=== PATIENT | female | born 1990 | race Caucasian/White ===

== ENCOUNTER 2022-12-20 20:18 | Outpatient (REF) | payer BC, SELFPAY ==
[2022-12-26 14:11] LABS: Age Gdln ACOG Testing Note (.); HPV Aptima Negative (Negative); IGP, Aptima HPV, rfx 16/18,45 Note (.)
== END 2022-12-20 20:19 | disposition home or self-care (01) ==
LOC: LAB 20:18
PROVIDERS: Visit Provider Physician Assistant
DX: Z01.419 Encounter for gynecological examination (general) (routine) without abnormal findings (principal)
CPT/HCPCS: 87624; G0145

== ENCOUNTER 2025-03-24 20:11 | Outpatient (REF) | payer BC, SELFPAY ==
--- OUTSIDE RECORDS SUMMARY | 2025-03-24 16:00 | XMS_ITS | Encounter Summary ---
Author Organization [facility] Address [address] [place] [address] Care Team Providers Care Metal Casket Maker Name Role Phone Paras Mcgowan MD Primary Care Provider + [phone] Reason for Visit * ReasonCommentsGynecologic Exam Encounter Details DateTypeDepartmentCare Team (Latest Contact Info)Ytvhbnquvet35/29/2025 4:00 PM EDTProcedure Visit [facility] [address] [place] [address] Isabelle Brown PA [address] [facility] [address] [place], [place] [id number] Well woman exam with routine gynecological exam; Amenorrhea Social History Tobacco UseTypesPacks/DayYears UsedDateSmoking Tobacco: NeverSmokeless Tobacco: Never Tobacco Cessation:Counseling Given: Not Answered Alcohol UseStandard Drinks/WeekCommentsNot Currently0 (1 standard drink = 0.6 oz pure alcohol)1-2 drinks 2-4x a month in the past year, Caffeine intake: 1-2 cups per day coffee, teaCommentsUnknownSex and Gender InformationValueDate RecordedSex Assigned at YhvkwVknkqy04/20/2023 11:17 AM EDTLegal SexFemale 08/08/2022 7:07 PM EDTGender BbiadqzbOyekks81/20/2023 11:17 AM EDTSexual ZaeghhauicpGmojgqpn43/20/2023 11:17 AM EDTdocumented as of this encounter Last Filed Vital Signs Vital SignReadingTime TakenCommentsBlood Zqrafold836/801 4:02 PM EDT Pulse--Temperature--Respiratory Rate--Oxygen Saturation--Inhaled Oxygen Concentration--Omkemn525 kg (321 lb)03/24/2025 4:02 PM EDTHeight--Body Mass Index48.8112/20/2022 11:43 AM EDTdocumented in this encounter Plan of Treatment DateTypeDepartmentCare Team (Latest Contact Info)Fnvitxkrpck37/05/2026 3:00 PM ESTProcedure Visit [facility] [address] [address] Isabelle Brown PA [address] [place] [address] NameTypePriorityAssociated DiagnosesOrder SchedulePap SmearPathology and CytologyRoutine Well woman exam with routine gynecological exam Ordered: 03/24/2025HPV DNA probe, amplifiedMicrobiologyRoutine Well woman exam with routine gynecological exam Ordered: 03/24/2025POCT , urine manually resultedPoint of Care Testing Routine Amenorrhea Ordered: 03/24/2025documented as of this encounter Visit Diagnoses Diagnosis Well woman exam with routine gynecological exam Routine gynecological examination Amenorrhea Absence of menstruation documented in this encounter Care Teams Team MemberRelationshipSpecialtyStart DateEnd Date Paras Mcgowan MD [address] [place] [address] PCP - GeneralFamily Medicine12/20/22documented as of this encounter
--- OUTSIDE RECORDS SUMMARY | 2025-03-24 20:16 | XMS_ITS | Encounter Summary ---
Author Organization [facility] Address [address] [place] [address] Care Team Providers Care Handbook Writer Name Role Phone Paras Mcgowan MD Primary Care Provider [phone] Encounter Details DateTypeDepartmentCare Team (Latest Contact Info)Zepzcingxxr37/29/2025Bamboo flowsheet [facility] [address] [place] [address] Isabelle Brown PA [address] [facility] [address] [place], [facility] Social History Tobacco UseTypesPacks/DayYears UsedDateSmoking Tobacco: NeverSmokeless Tobacco: NeverAlcohol UseStandard Drinks/WeekCommentsNot Currently0 (1 standard drink = 0.6 oz pure alcohol)1-2 drinks 2-4x a month in the past year, Caffeine intake: 1-2 cups per day coffee, teaCommentsUnknownSex and Gender Information ValueDate RecordedSex Assigned at HjieaQouqng88/20/2023 11:17 AM EDTLegal Sex Hxsqyl5208/08/2022 7:07 PM EDTGender SqajbcstXvfamr51/20/2023 11:17 AM EDTSexual QfzqmdbgfqwDxtdxyth23/20/2023 11:17 AM EDTdocumented as of this encounter Plan of Treatment DateTypeDepartmentCare Team (Latest Contact Info)Gyshjnlhctz78/09/2025 3:00 PM ESTProcedure Visit [facility] [address] [address] Isabelle Brown PA [address] [address] [place] [address] documented as of this encounter Visit Diagnoses Not on filedocumented in this encounter Care Teams Team MemberRelationshipSpecialtyStart DateEnd Date Paras Mcgowan MD [address] [place] [address] PCP - GeneralFamily Medicine12/20/22documented as of this encounter
--- OUTSIDE RECORDS SUMMARY | 2025-03-24 20:16 | XMS_ITS | Encounter Summary ---
Author Organization [facility] Address [address] [place] [address] Care Team Providers Care Sap Hana Developer Name Role Phone Paras Mcgowan MD Primary Care Provider + [phone] Encounter Details DateTypeDepartmentCare Team (Latest Contact Info)Zwbbbydvwjh18/22/2025Travel Social History Tobacco UseTypesPacks/DayYears UsedDateSmoking Tobacco: NeverAlcohol UseStandard Drinks/WeekCommentsYes0 (1 standard drink = 0.6 oz pure alcohol)1-2 drinks 2-4x a month in the past year, Caffeine intake: 1-2 cups per day coffee, tea CommentsUnknownSex and Gender InformationValueDate RecordedSex Assigned at Vsmhdt2912/13/2022 11:17 AM EDTLegal UbiRghsts29/15/2023 7:07 PM EDTGender UgnjepapTqeihu17/20/2023 11:17 AM EDTSexual VydbzattvjbTgtolucy17/20/2023 11:17 AM EDTdocumented as of this encounter Plan of Treatment DateTypeDepartmentCare Team (Latest Contact Info)Eknxzbkmoij96/05/2026 3:00 PM ESTProcedure Visit [facility] [address] [place] [address] Isabelle Brown PA [address] [place] [address] documented as of this encounter Visit Diagnoses Not on filedocumented in this encounter Care Teams Team MemberRelationshipSpecialtyStart DateEnd Date Paras Mcgowan MD [address] [place] [address] PCP - GeneralFamily Medicine12/20/22documented as of this encounter
--- OUTSIDE RECORDS SUMMARY | 2025-03-24 20:16 | XMS_ITS | Clinical Summary ---
Author Organization [facility] Address [address] [place] [address] Care Team Providers Care Needle Loom Setter Name Role Phone Paras Mcgowan MD Primary Care Provider [phone] Allergies No known active allergies Medications MedicationSigDispense QuantityRefillsLast FilledStart DateEnd DateStatus citalopram (CeleXA) 20 MG tablet Active pantoprazole (ProtoNix) 20 MG EC tablet Indications:Gastroesophageal reflux disease, unspecified whether esophagitis presentTAKE 1 TABLET BY MOUTH ONCE DAILY IN THE MORNING BEFORE MEAL(S) DO NOT CRUSH, CHEW, OR SPLIT. 30 tablet 5Active norethindrone (Micronor) 0.35 MG tablet Indications: control counselingTake 1 tablet (0.35 mg) by mouth in the morning. 28 tablet 5Active Encounters DateTypeDepartmentCare CmcvRcyfhtsuyjw45/29/2025 4:00 PM EDTProcedure Visit [facility] [address] [place] [address] Isabelle Brown PA Well woman exam with routine gynecological exam; Hskxfvbicm73/29/2025amboo flowsheet [facility] [address] [place] [address] Isabelle Brown PA 03/17/20256022Nkajyk57/15/2025Refill [facility] [address] [place] [address] Isaiah Cohn, DO control vjnephhwmm40/06/2025Refill [facility] [address] [place] [address] [place] [address] Isaiah Cohn, DO control counselingfrom Last 3 Months Family History Medical HistoryRelationNameCommentsHyperlipidemiaBrotherScott AxeHeart disease FatherJames AxeHypertensionFatherJames AxeDiabetesFather's SisterDonna Narcisa Heart diseaseMaternal GrandfatherVincent ScottStrokeMaternal GrandmotherMary ScottArthritisMotherMargaret Unruly- AxeCancerPaternal GrandfatherAlbert AxeHeart diseasePaternal GrandfatherAlbert AxeHypertensionPaternal GrandfatherAlbert Axe CancerPaternal GrandmotherViola AxeDiabetesPaternal GrandmotherViola AxeUterine cancerPaternal GrandmotherViola AxeRelationNameStatusCommentsBrotherScott Axe1 FatherJames AxeAliveFather's SisterDonna BrunnerAliveMaternal GrandfatherVincent ScottMaternal GrandmotherMary ScottMotherMargaret Unruly- AxeAlivePaternal GrandfatherAlbert AxePaternal GrandmotherViola Axe Social History Tobacco UseTypesPacks/DayYears UsedDateSmoking Tobacco: NeverSmokeless Tobacco: Never Tobacco Cessation:Counseling Given: Not Answered Alcohol UseStandard Drinks/WeekCommentsNot Currently0 (1 standard drink = 0.6 oz pure alcohol)1-2 drinks 2-4x a month in the past year, Caffeine intake: 1-2 cups per day coffee, teaCommentsUnknownSex and Gender InformationValueDate RecordedSex Assigned at IzqraFzjvtt26/20/2023 11:17 AM EDTLegal SexFemale 08/08/2022 7:07 PM EDTGender NhyzsfbyFyjumj58/20/2023 11:17 AM EDTSexual MizbbbaakrlBpjhmust22/20/2023 11:17 AM EDT Last Filed Vital Signs Vital SignReadingTime TakenCommentsBlood Feysozja071/8010/ 4:02 PM EDT Pulse--Temperature--Respiratory Rate--Oxygen Saturation--Inhaled Oxygen Concentration--Mawhyo264 kg (321 lb)03/24/2025 4:02 PM BAJMjheoc842.7 cm (5' 8 ) 12/20/2022 11:43 AM EDTBody Mass Index48.8112/20/2022 11:43 AM EDT Plan of Treatment DateTypeDepartmentCare Team (Latest Contact Info)Vgevwudmnbi15/05/2026 3:00 PM ESTProcedure Visit [facility] [address] [place] [phone] Isabelle Brown PA [address] [facility] [facility] [address] [place], [facility] Insurance Care Teams Team MemberRelationshipSpecialtyStart DateEnd Paras Mcgowan MD [address] [place] [address] PCP - GeneralFamily Medicine12/20/22
== END 2025-03-24 20:12 | disposition home or self-care (01) ==
LOC: LAB 20:11
PROVIDERS: Visit Provider Physician Assistant
DX: Z01.419 Encounter for gynecological examination (general) (routine) without abnormal findings (principal)
CPT/HCPCS: 87624; 88175